=== PATIENT | male | born 1970 | race Asian ===

== ENCOUNTER 2016-10-03 08:16 | Emergency (ER) | payer BC ==
[~2016-10-03] VITALS: Ht 162.6 cm; Wt 77.6 kg
[2016-10-03 08:26] VITALS: BP_SYST 113
[2016-10-03 08:51] LABS: HEMATOCRIT 48.8 % (36-54); HEMOGLOBIN 16.1 g/dL (14.0-18.0); MEAN CORPUSCULAR HEMOGLOBIN 30 pg (27-31); MEAN CORPUSCULAR HGB CONC 33 % (32-36); MEAN CORPUSCULAR VOLUME 90 fL (79.0-98.0); PLATELET COUNT (AUTO) 207 K/uL (130-430); RED BLOOD CELL COUNT(AUTO) 5.45 MIL/uL (4.2-6.2); RED CELL DISTRIBUTION WIDTH 12.1 % (9.0-15.0); WHITE BLOOD COUNT (AUTO) 7.9 K/uL (4.8-10.8)
[2016-10-03 08:56] LABS: CALCIUM 8.9 mg/dL (8.4-11.0); CREATININE 0.92 mg/dL (0.55-1.30); POTASSIUM 3.8 mmol/L (3.5-5.1)
[2016-10-03] MEDS ORDERED: DIPHENHYDRAMINE INJ 50 MG/ML VIAL IVP ONE (09:00)
[2016-10-03] MEDS ORDERED: MORPHINE 4 MG/ML INJ. SYRINGE IVP ONE (09:00)
[2016-10-03 09:01] LABS: ALBUMIN 4.6 g/dL (3.4-4.8); TOTAL BILIRUBIN 0.6 mg/dL (0.0-1.0); TOTAL PROTEIN, SERUM 7.7 g/dL (6.4-8.3)
[2016-10-03 09:11] LABS: ATYPICAL LYMPHOCYTES % 0 % (0-0); BAND % (MANUAL) 18 % (0-6); BASOPHILS % (MANUAL) 0 % (0-2); EOSINOPHILS % (MANUAL) 0 % (0-7); LYMPHOCYTES % (MANUAL) 10 % (20-46); MONOCYTES % (MANUAL) 3 % (0-11)
[2016-10-03 09:36] LABS: PROTHROMBIN TIME 10.7 SECS (9.5-12.5)
[2016-10-03 09:43] LABS: BILIRUBIN,URINE NEGATIVE (NEGATIVE); BLOOD, URINE NEGATIVE (NEGATIVE); CLARITY/URINE CLEAR (CLEAR); COLOR,URINE YELLOW (YELLOW); GLUCOSE,URINE NEGATIVE (NEGATIVE); KETONES,URINE NEGATIVE (NEGATIVE); LEUKOCYTE ESTERASE ,URINE NEGATIVE (NEGATIVE); NITRITE, URINE NEGATIVE (NEGATIVE); PH,URINE 7.5 (5.0-8.0); PROTEIN URINE TRACE (NEGATIVE); UROBILINOGEN,URINE 0.2 (0.2-1.0)
== END 2016-10-03 11:08 | disposition home or self-care (01) ==
LOC: SED 08:16
DX: R10.84 Generalized abdominal pain (principal); R11.2 Nausea with vomiting, unspecified; R19.7 Diarrhea, unspecified
CPT/HCPCS: 36415; 71010; 74176; 80053; 81003; 83605; 83690; 85007; 85027; 85610; 87040; 93005; 96374; 96375; 99285; J1200; J2270

== ENCOUNTER 2017-09-03 14:23 | Emergency (ER) | payer BC ==
[~2017-09-03] VITALS: Ht 170.2 cm; Wt 80.7 kg
[2017-09-03 14:40] VITALS: BP_SYST 118
[2017-09-03 16:29] VITALS: BP_SYST 118
== END 2017-09-03 16:29 | disposition home or self-care (01) ==
LOC: SED 14:23
DX: J01.10 Acute frontal sinusitis, unspecified (principal)
CPT/HCPCS: 99283